=== PATIENT | male | born 1955 | race Caucasian/White ===

== ENCOUNTER → 2019-08-13 | Outpatient (CLI) | payer OTHER ==
--- NOTE | 2019-08-13 14:57 | CARD ---
MR#: [id number] Date of Study: 08/13/2019 Ordering Physician: ALEXANDER SWAN, Referring Physician: ALEXANDER SWAN, Tech: Nomi Jaramillo [facility] APPROVED REPORT EXAM: Two-dimensional and M-mode echocardiogram with Doppler and color Doppler. Other Information Quality : AverageHR: 57bpm Rhythm : NSR, Bradycardia INDICATION CAD Non STEMI aortic stenosis 2D DIMENSIONS Left Atrium(2D)4.5 (1.6-4.0cm)IVSd1.1 (0.7-1.1cm) Aortic Root(2D)3.7 (2.0-3.7cm)LVDd5.6 (3.9-5.9cm) LVOT Diameter2.2 (1.8-2.4cm)PWd1.2 (0.7-1.1cm) LVDs3.8 (2.5-4.0cm)FS (%) 32.6 % SV91.7 mlLVEF(%)60.4 (>50%) Aortic Valve AoV Peak Enrrique.456.1cm/sAoV RZU968.3cm AO Peak GR.83.2mmHgLVOT Peak Enrrique.142.8cm/s AO Mean GR.51mmHgAVA (VMAX)1.17cm2 AI P 1/2 Evgu204il Mitral Valve MV E Wsnkflat39.5cm/sMV DECEL XUYE122yz MV A Jzmenavy14.1cm/sE/A Ratio1.7 MV A Uyrrzdng934ft Pulmonary Valve PV Peak Kkvizqyj224.4cm/s Tricuspid Valve TR P. Onqaerlq481jm/sRAP ZMCVPTJZ7ugTb TR Peak Gr.22jiZvXNCT62oxWa Pulmonary Vein S1 Xyoxuyqi01.1cm/sD2 Ngonrqnr14.6cm/s PVa cbhrttek490dxrq LEFT VENTRICLE The left ventricle is normal size. There is mild concentric left ventricular hypertrophy. The left ve ntricular systolic function is normal. The ejection fraction is 55-60%. There is normal LV segmental wall motion. Transmitral Doppler flow pattern is Grade II-pseudonormal filling dynamics. RIGHT VENTRICLE The right ventricle is normal size. There is normal right ventricular wall thickness. The right ventr icular systolic function is normal. ATRIA The left atrium is mildly dilated. The right atrium size is normal. The interatrial septum is intact with no evidence for an atrial septal defect or patent foramen ovale as noted on 2-D or Doppler imagi ng. AORTIC VALVE The aortic valve is moderately-severely calcified. Doppler and Color Flow revealed mild aortic regurg itation. There is moderate-severe valvular aortic stenosis. Calculated aortic valve area is 1.2 cm2 w ith maximum pressure gradient of 83 mmHg and mean pressure gradient of 50 mmHg. MITRAL VALVE The mitral valve is normal in structure and function. There is no evidence of mitral valve prolapse. There is no mitral valve stenosis. Doppler and Color-flow revealed mild mitral regurgitation. TRICUSPID VALVE The tricuspid valve is normal in structure and function. Doppler and Color Flow revealed trace tricus pid regurgitation with PAP of 25 mmHg. There is no tricuspid valve prolapse or vegetation. There is n o tricuspid valve stenosis. PULMONIC VALVE The pulmonary valve is normal in structure and function. Doppler and Color Flow revealed trace pulmon ic valvular regurgitation. There is no pulmonic valvular stenosis. GREAT VESSELS The aortic root is normal in size. The ascending aorta is normal in size. The pulmonary artery is nor mal. The IVC is normal in size and collapses >50% with inspiration. PERICARDIAL EFFUSION There is no pleural effusion. There is no evidence of significant pericardial effusion. Critical Notification Critical Value: No <Conclusion> The left ventricular systolic function is normal. The ejection fraction is 55-60%. There is normal LV segmental wall motion. Moderate-severe valvular aortic stenosis with maximum pressure gradient of 83 mmHg and mean pressure gradient of 50 mmHg. Mild aortic regurgitation. Mild mitral regurgitation. Trace tricuspid regurgitation with PAP of 25 mmHg. There is no evidence of significant pericardial effusion. Signed by : Jak Melchor, Electronically Approved : 08/13/2019 14:57:16
== END | disposition home or self-care (01) ==
LOC: ECHO 13:15
PROVIDERS: ATTEND Internal Medicine Cardiovascular Disease
DX: I08.0 Rheumatic disorders of both mitral and aortic valves (principal); I21.3 ST elevation (STEMI) myocardial infarction of unspecified site; I25.10 Atherosclerotic heart disease of native coronary artery without angina pectoris
CPT/HCPCS: 93306

== ENCOUNTER → 2020-07-28 | Outpatient (CLI) | payer MEDICARE ==
[~2020-07-28] MED LIST: PERFLUTREN PROTEIN-A MICROSPHR 0.22 MG/ML 3 ML VIAL. IV ONE
--- NOTE | 2020-07-28 12:05 | CARD ---
MR#: [id number] Date of Study: 07/28/2020 Ordering Physician: ALEXANDER SWAN, Referring Physician: ALEXANDER SWAN, Tech: Dipti Santana [facility] APPROVED REPORT EXAM: Two-dimensional and M-mode echocardiogram with Doppler and color Doppler. Other Information Quality : Technically LimitedHR: 64bpm Rhythm : NSR INDICATION Aortic Valve Disease Echo Enhancing Agent Indication: Endocardial border delineation RISK FACTORS Hypertension Hyperlipidemia 2D DIMENSIONS RVDd3.5 (2.9-3.5cm)Left Atrium(2D)4.4 (1.6-4.0cm) IVSd1.2 (0.7-1.1cm)Aortic Root(2D)3.3 (2.0-3.7cm) LVDd5.7 (3.9-5.9cm)LVOT Diameter2.3 (1.8-2.4cm) PWd1.4 (0.7-1.1cm)LVDs3.5 (2.5-4.0cm) FS (%) 37.4 %SV104.8 ml LVEF(%)66.7 (>50%) Aortic Valve AoV Peak Enrrique.437.4cm/sAoV LZA232.2cm AO Peak GR.76.5mmHgLVOT Peak Enrrique.101.4cm/s AO Mean GR.48mmHgAVA (VMAX)0.96cm2 AI P 1/2 Oeit822tj Mitral Valve MV E Fjklsypt687.7cm/sMV DECEL ZLIU849mc MV A Dakeevde12.7cm/sE/A Ratio2.5 Tricuspid Valve TR P. Eqszdvzz089ba/sTR Peak Gr.20mmHg Pulmonary Vein S1 Mzpeysem49.3cm/sD2 Edjxqafm55.8cm/s LEFT VENTRICLE The Left Ventricle is mildly dilated. There is mild concentric left ventricular hypertrophy. The left ventricular systolic function is normal. Estimated ejection fraction 60-65%. There is normal LV segm ental wall motion. Tissue Doppler imaging reveals moderate left ventricular diastolic dysfunction. RIGHT VENTRICLE The right ventricle is normal size. There is normal right ventricular wall thickness. The right ventr icular systolic function is normal. ATRIA The left atrium size is normal. The right atrium size is normal. The interatrial septum is intact wit h no evidence for an atrial septal defect or patent foramen ovale as noted on 2-D or Doppler imaging. AORTIC VALVE The aortic valve is severely calcified. Doppler and Color Flow revealed mild aortic regurgitation. Se nevaeh valvular aortic stenosis. Peak pressure gradient is 77 mmHg with a mean pressure gradient 48 mmH g. LILIBETH calculated to be 0.9-1.0 cm2. MITRAL VALVE The mitral valve is normal in structure and function. There is no evidence of mitral valve prolapse. There is no mitral valve stenosis. Doppler and Color-flow revealed mild mitral regurgitation. TRICUSPID VALVE The tricuspid valve is normal in structure and function. Doppler and Color Flow revealed trace tricus pid regurgitation. Estimated PAP 20 mmHg. There is no tricuspid valve stenosis. PULMONIC VALVE The pulmonary valve is normal in structure and function. Doppler and Color Flow revealed no pulmonic valvular regurgitation. GREAT VESSELS The aortic root is normal in size. The ascending aorta is normal in size. The IVC is normal in size a nd collapses >50% with inspiration. PERICARDIAL EFFUSION There is no evidence of significant pericardial effusion. Critical Notification Critical Value: No <Conclusion> The left ventricular systolic function is normal. Estimated ejection fraction 60-65%. There is normal LV segmental wall motion. Tissue Doppler imaging reveals moderate left ventricular diastolic dysfunction. Severe valvular aortic stenosis. Peak pressure gradient is 77 mmHg with a mean pressure gradient 48 mmHg. LILIBETH calculated to be 0.9-1.0 cm2. Mild aortic regurgitation. Mild mitral regurgitation. Trace tricuspid regurgitation. Estimated PAP 20 mmHg. There is no evidence of significant pericardial effusion. Signed by : Jak Melchor, Electronically Approved : 07/28/2020 12:04:37
== END ==
LOC: ECHO 08:29
PROVIDERS: ATTEND Internal Medicine Cardiovascular Disease
DX: I06.8 Other rheumatic aortic valve diseases (principal)
CPT/HCPCS: C8929; Q9956

== ENCOUNTER → 2021-01-26 | Outpatient (CLI) | payer MEDICARE ==
--- NOTE | 2021-01-26 15:43 | CARD ---
MR#: [id number] Date of Study: 01/26/2021 Ordering Physician: ALEXANDER SWAN, Referring Physician: ALEXANDER SWAN, Tech: Shankar Christopher [facility] APPROVED REPORT EXAM: Two-dimensional and M-mode echocardiogram with Doppler and color Doppler. Other Information Quality : FairHR: 59bpm Rhythm : NSR INDICATION Murmur Aortic valve stenosis RISK FACTORS Obesity 2D DIMENSIONS Left Atrium(2D)4.4 (1.6-4.0cm)IVSd1.5 (0.7-1.1cm) Aortic Root(2D)3.6 (2.0-3.7cm)LVDd5.7 (3.9-5.9cm) LVOT Diameter2.0 (1.8-2.4cm)PWd1.5 (0.7-1.1cm) LVDs3.9 (2.5-4.0cm)FS (%) 31.2 % SV92.6 mlLVEF(%)58.3 (>50%) Aortic Valve AoV Peak Enrrique.470.6cm/sAoV BBL591.5cm AO Peak GR.88.6mmHgLVOT Peak Enrrique.127.8cm/s AO Mean GR.59mmHgAVA (VMAX)0.86cm2 AI P 1/2 Qgli699wn Mitral Valve MV E Hlzsfyts050.9cm/sMV E Peak Gr.6mmHg MV DECEL [id number] A Mpgqhyyq42.1cm/s MV E Mean Gr.3mmHgE/A Ratio2.5 Pulmonary Valve PV Peak Uimbuvuv982.4cm/s Tricuspid Valve TR P. Ahubfgsc431vv/sTR Peak Gr.22mmHg Pulmonary Vein S1 Popzrjiu08.7cm/sD2 Tdwksjzh42.2cm/s LEFT VENTRICLE The Left Ventricle is borderline dilated. There is moderate concentric left ventricular hypertrophy. The left ventricular systolic function is normal. The ejection fractin is 60-65%. There is normal LV segmental wall motion. Tissue Doppler imaging reveals moderate left ventricular diastolic dysfunction . No left ventricle thrombus noted on this study. There is no ventricular septal defect visualized. T here is no left ventricular aneurysm. There is no mass noted in the left ventricle. RIGHT VENTRICLE The right ventricle is normal size. There is normal right ventricular wall thickness. The right ventr icular systolic function is normal. ATRIA The left atrium is mildly dilated. The right atrium size is normal. The interatrial septum is intact with no evidence for an atrial septal defect or patent foramen ovale as noted on 2-D or Doppler imagi ng. AORTIC VALVE The aortic valve is calcified and displays decreased opening. Doppler and Color Flow revealed mild ao rtic regurgitation. There is severe valvular aortic stenosis. Calculated aortic valve area is 0.9 cm2 with maximum pressure gradient of 89 mmHg and mean pressure gradient of 56 mmHg. There is no aortic valvular vegetation. MITRAL VALVE The mitral valve is normal in structure and function. There is no evidence of mitral valve prolapse. There is no mitral valve stenosis. Doppler and Color-flow revealed mild mitral regurgitation. TRICUSPID VALVE The tricuspid valve is normal in structure and function. Doppler and Color Flow revealed trace to mil d tricuspid regurgitation. There is no tricuspid valve prolapse or vegetation. There is no tricuspid valve stenosis. PULMONIC VALVE The pulmonic valve from multiple views was not well visualized. Doppler and Color Flow revealed no pu lmonic valvular regurgitation. There is mild pulmonic stenosis. Peak velocity 2.3 m/sec. Peak gradien t 21 mmgh and mean gradient 12 mmgh. GREAT VESSELS The aortic root is normal in size. The ascending aorta is normal in size. The pulmonary artery is nor mal. The IVC is normal in size and collapses >50% with inspiration. PERICARDIAL EFFUSION There is no pleural effusion. There is no evidence of significant pericardial effusion. Critical Notification Critical Value: Yes <Conclusion> The left ventricular systolic function is normal. The ejection fractin is 60-65%. There is normal LV segmental wall motion. There is severe valvular aortic stenosis with maximum pressure gradient of 89 mmHg and mean pressure gradient of 56 mmHg. Mild aortic regurgitation. Mild mitral regurgitation. Trace to mild tricuspid regurgitation. There is no evidence of significant pericardial effusion. Signed by : Jak Melchor, Electronically Approved : 01/26/2021 15:42:33
== END ==
LOC: ECHO 09:38
PROVIDERS: ATTEND Internal Medicine Cardiovascular Disease
DX: I08.8 Other rheumatic multiple valve diseases (principal)
CPT/HCPCS: 93306